=== PATIENT | female | born 1955 | race Caucasian/White ===

== ENCOUNTER 2020-02-29 13:02 | Outpatient (REF) | payer OTHER, SELFPAY ==
--- NOTE | 2020-02-29 13:41 | XR_ITS ---
EXAMINATION: XR KNEE, LEFT CLINICAL INFORMATION: Left knee pain. COMPARISON: None TECHNIQUE: Three views of the left knee. FINDINGS: There is loss of medial and patellofemoral compartment joint space with periarticular spurring. There is small anterior superior patellar enthesophyte. No abnormal joint effusion seen. XR/XR knee LT 3V IMPRESSION: Mild degenerative changes medial and patellofemoral compartment. No visible acute fracture or dislocation. There is mild suprapatellar spurring and anterior superior enthesophytes.
[2020-02-29 14:36] LABS: MANUAL DIFF FLAG NO
[2020-02-29 14:41] LABS: Basophils Percent Auto 0.5 % (0-2); Eosinophils Absolute Auto 0.3 X10*3/uL (0.0-0.4); Eosinophils Percent Auto 3.9 % (0-4); Hematocrit 43.7 % (37-47); Hemoglobin 14.6 g/dl (12.0-16.0); Imm Gran Abs Auto 0.03 X10*3/uL (0.00-0.03); Imm Gran Pct Auto 0.4 % (0.0-0.4); Lymphocytes Absolute Auto 2.1 X10*3/uL (1.2-4.9); Lymphocytes Percent Auto 25.4 % (20-40); Mean Corpuscular HGB Conc 33.4 g/dl (31.0-35.0); Mean Corpuscular Hemoglobin 29.7 pg (27.0-33.0); Mean Corpuscular Volume 88.8 fL (80-98); Mean Platelet Volume 10.2 fL (9.4-12.3); Monocytes Percent Auto 11.6 % (2-11); Neutrophils Absolute Auto 4.8 X10*3/uL (2.0-8.3); Neutrophils Percent Auto 58.2 % (45-73); Platelet Count 294 X10*3/uL (160-400); Red Blood Count 4.92 X10*6/uL (4.20-5.50); Red Cell Distribution Width 13.1 % (11.0-16.0); White Blood Count 8.2 X10*3/uL (4.8-10.8)
[2020-02-29 14:53] LABS: Estimated Average Glucose 203 mg/dL; Hemoglobin A1c % 8.7 %
[2020-02-29 15:12] LABS: Alanine Aminotransferase 18 U/L (0-31); Albumin Level 4.4 g/dL (3.5-5.0); Alkaline Phosphatase 80 U/L (39-117); Anion Gap 14 (12-20); Aspartate Amino Transferase 18 U/L (5-31); Bilirubin Total 1.2 mg/dL (0.0-1.0); Blood Urea Nitrogen 9 mg/dL (9-16); Calcium 9.1 mg/dL (8.4-10.2); Carbon Dioxide 28 mmol/L (22-29); Chloride 102 mmol/L (96-108); Estimated Glomerular Filt Rate > 60; Glucose Random 170 mg/dL (60-115); Potassium 3.6 mmol/l (3.3-5.1); Sodium 140 mmol/L (135-145); Total Protein 7.3 g/dL (6.5-8.0)
[2020-02-29 15:23] LABS: Creatinine Urine 106.45 mg/dL; Microalbum/Creatinine Ratio Ur 126.8 ug/mg cr
== END 2020-02-29 13:03 | disposition home or self-care (01) ==
LOC: HO.10HDL 13:02
PROVIDERS: Visit Provider Internal Medicine
DX: E11.9 Type 2 diabetes mellitus without complications (principal); M79.605 Pain in left leg
CPT/HCPCS: 36415; 73562; 80053; 82043; 83036; 85025

== ENCOUNTER 2020-03-27 10:42 | Outpatient (REF) | payer OTHER, SELFPAY ==
--- NOTE | 2020-03-27 10:45 | XR_ITS ---
EXAMINATION: XR KNEE AP STANDING CLINICAL INFORMATION: Left knee pain COMPARISON: Previous left knee x-ray 02/29/2020 TECHNIQUE: AP bilateral standing view of the knees was obtained. FINDINGS: Bone alignment is normal. No fracture or dislocation is seen. Joint spaces are normal. The left knee joint may be slightly higher than the right. XR/XR knee standing BI IMPRESSION: Question leg length discrepancy.
== END 2020-03-27 10:43 | disposition home or self-care (01) ==
LOC: HO.HOSX 10:42
PROVIDERS: Visit Provider Orthopaedic Surgery
DX: M17.12 Unilateral primary osteoarthritis, left knee (principal)
CPT/HCPCS: 73565; 99202

== ENCOUNTER 2020-11-10 14:06 | Outpatient (REF) | payer MEDICAID, SELFPAY ==
[2020-11-10 14:56] LABS: MANUAL DIFF FLAG NO
[2020-11-10 15:02] LABS: Basophils Percent Auto 0.4 % (0-2); Eosinophils Absolute Auto 0.4 X10*3/uL (0.0-0.4); Eosinophils Percent Auto 5.3 % (0-4); Hematocrit 37.4 % (37-47); Hemoglobin 11.9 g/dl (12.0-16.0); Imm Gran Abs Auto 0.03 X10*3/uL (0.00-0.03); Imm Gran Pct Auto 0.4 % (0.0-0.4); Lymphocytes Percent Auto 25.1 % (20-40); Mean Corpuscular HGB Conc 31.8 g/dl (31.0-35.0); Mean Corpuscular Hemoglobin 28.9 pg (27.0-33.0); Mean Corpuscular Volume 90.8 fL (80-98); Mean Platelet Volume 9.9 fL (9.4-12.3); Monocytes Percent Auto 12.3 % (2-11); Neutrophils Absolute Auto 4.5 X10*3/uL (2.0-8.3); Neutrophils Percent Auto 56.5 % (45-73); Platelet Count 303 X10*3/uL (160-400); Red Blood Count 4.12 X10*6/uL (4.20-5.50); Red Cell Distribution Width 14.7 % (11.0-16.0)
[2020-11-10 15:16] LABS: Estimated Average Glucose 140 mg/dL; Hemoglobin A1C 152.2251 umol/L; Hemoglobin A1c % 6.5 %
[2020-11-10 15:17] LABS: Anion Gap 13 (12-20); Blood Urea Nitrogen 9 mg/dL (9-16); Calcium 9.4 mg/dL (8.4-10.2); Carbon Dioxide 27 mmol/L (22-29); Chloride 105 mmol/L (96-108); Cholesterol 162 mg/dL; Estimated Glomerular Filt Rate > 60; Glucose Random 109 mg/dL (60-115); Potassium 3.6 mmol/L (3.3-5.1); Sodium 141 mmol/L (135-145)
[2020-11-10 17:13] LABS: Creatinine Urine 75.71 mg/dL; Microalbum/Creatinine Ratio Ur 46.2 ug/mg cr
== END 2020-11-10 14:07 | disposition home or self-care (01) ==
LOC: HO.LAB 14:06
PROVIDERS: PCP Internal Medicine; Visit Provider Internal Medicine
DX: I10 Essential (primary) hypertension (principal); E78.00 Pure hypercholesterolemia, unspecified; E11.9 Type 2 diabetes mellitus without complications
CPT/HCPCS: 36415; 80048; 82043; 82465; 83036; 85025

== ENCOUNTER 2021-02-13 10:15 | Outpatient (REF) | payer MEDICAID, SELFPAY ==
[2021-02-13 12:02] LABS: MANUAL DIFF FLAG NO
[2021-02-13 12:09] LABS: Basophils Percent Auto 0.4 % (0-2); Eosinophils Absolute Auto 0.5 X10*3/uL (0.0-0.4); Eosinophils Percent Auto 6.5 % (0-4); Hematocrit 38.4 % (37-47); Hemoglobin 12.3 g/dl (12.0-16.0); Imm Gran Abs Auto 0.01 X10*3/uL (0.00-0.03); Imm Gran Pct Auto 0.1 % (0.0-0.4); Lymphocytes Absolute Auto 1.9 X10*3/uL (1.2-4.9); Mean Corpuscular Volume 87.5 fL (80-98); Mean Platelet Volume 9.9 fL (9.4-12.3); Monocytes Absolute Auto 0.7 X10*3/uL (0.1-1.2); Monocytes Percent Auto 10.1 % (2-11); Neutrophils Absolute Auto 3.8 X10*3/uL (2.0-8.3); Neutrophils Percent Auto 54.9 % (45-73); Platelet Count 277 X10*3/uL (160-400); Red Blood Count 4.39 X10*6/uL (4.20-5.50); White Blood Count 6.9 X10*3/uL (4.8-10.8)
[2021-02-13 12:13] LABS: Estimated Average Glucose 146 mg/dL; Hemoglobin A1c % 6.7 %
[2021-02-13 14:28] LABS: Alanine Aminotransferase 32 U/L (0-31); Albumin Level 4.1 g/dL (3.5-5.0); Alkaline Phosphatase 90 U/L (39-117); Anion Gap 12 (12-20); Aspartate Amino Transferase 28 U/L (5-31); Bilirubin Total 1.2 mg/dL (0.0-1.0); Blood Urea Nitrogen 15 mg/dL (9-16); Calcium 9.1 mg/dL (8.4-10.2); Carbon Dioxide 27 mmol/L (22-29); Chloride 107 mmol/L (96-108); Cholesterol 166 mg/dL; Estimated Glomerular Filt Rate > 60; Glucose Random 125 mg/dL (60-115); HDL Cholesterol 44 mg/dL; LDL Cholesterol Calculated 105 mg/dl; Sodium 142 mmol/L (135-145); Total Protein 7.1 g/dL (6.5-8.0); Triglycerides 88 mg/dL
[2021-02-13 14:41] LABS: Microalbum/Creatinine Ratio Ur 13.5 ug/mg cr
== END 2021-02-13 10:16 | disposition home or self-care (01) ==
LOC: HO.HMGCLDS 10:15
PROVIDERS: PCP Internal Medicine; Visit Provider Internal Medicine
DX: E11.9 Type 2 diabetes mellitus without complications (principal); I10 Essential (primary) hypertension; E78.00 Pure hypercholesterolemia, unspecified; Z86.73 Personal history of transient ischemic attack (TIA), and cerebral infarction without residual deficits
CPT/HCPCS: 36415; 80053; 80061; 82043; 83036; 85025

== ENCOUNTER 2021-02-14 12:25 | Outpatient (REF) | payer MEDICAID, SELFPAY ==
[2021-02-14 14:07] LABS: Appearance Urine CLEAR; Color Urine YELLOW; Glucose Urine UA NEG (NEG); Leukocyte Esterase Urine NEG (NEG); Nitrite Urine NEG (NEG); Specific Gravity - Urine >= 1.030 (1.005-1.025); Urine Blood NEG (NEG); Urine Ketones NEG (NEG); Urine Protein NEG (NEG-TRACE)
== END 2021-02-14 12:26 | disposition home or self-care (01) ==
LOC: HO.HMGCLNP 12:25
PROVIDERS: Visit Provider Internal Medicine
DX: E11.9 Type 2 diabetes mellitus without complications (principal)
CPT/HCPCS: 81003

== ENCOUNTER 2021-07-02 11:59 | Outpatient (REF) | payer MEDICAID, SELFPAY ==
[2021-07-02 14:26] LABS: Alanine Aminotransferase 24 U/L (0-31); Alkaline Phosphatase 87 U/L (39-117); Anion Gap 13 (12-20); Aspartate Amino Transferase 23 U/L (5-31); Bilirubin Total 1.2 mg/dL (0.0-1.0); Blood Urea Nitrogen 18 mg/dL (9-16); Calcium 9.7 mg/dL (8.4-10.2); Carbon Dioxide 29 mmol/L (22-29); Chloride 105 mmol/L (96-108); Estimated Glomerular Filt Rate > 60; Glucose Random 124 mg/dL (60-115); Potassium 3.9 mmol/L (3.3-5.1); Sodium 143 mmol/L (135-145)
[2021-07-02 14:40] LABS: Estimated Average Glucose 137 mg/dL; Hemoglobin A1c % 6.4 %
== END 2021-07-02 12:00 | disposition home or self-care (01) ==
LOC: HO.HMGCLDS 11:59
PROVIDERS: Visit Provider Internal Medicine
DX: E11.9 Type 2 diabetes mellitus without complications (principal); I10 Essential (primary) hypertension
CPT/HCPCS: 36415; 80053; 83036

== ENCOUNTER 2021-11-21 11:49 | Outpatient (REF) | payer MEDICAID, SELFPAY ==
[2021-11-21 13:41] LABS: MANUAL DIFF FLAG NO
[2021-11-21 13:44] LABS: Basophils Percent Auto 0.5 % (0-2); Eosinophils Absolute Auto 0.4 X10*3/uL (0.0-0.4); Eosinophils Percent Auto 4.6 % (0-4); Hematocrit 39.3 % (37.0-47.0); Hemoglobin 12.6 g/dl (12.0-16.0); Imm Gran Abs Auto 0.04 X10*3/uL (0.00-0.03); Imm Gran Pct Auto 0.5 % (0.0-0.4); Lymphocytes Absolute Auto 2.3 X10*3/uL (1.2-4.9); Lymphocytes Percent Auto 27.3 % (20-40); Mean Corpuscular HGB Conc 32.1 g/dl (31.0-35.0); Mean Corpuscular Hemoglobin 28.3 pg (27.0-33.0); Mean Corpuscular Volume 88.1 fL (80.0-98.0); Mean Platelet Volume 10.1 fL (9.4-12.3); Monocytes Absolute Auto 0.8 X10*3/uL (0.1-1.2); Monocytes Percent Auto 9.3 % (2-11); Neutrophils Absolute Auto 4.8 x10*3/uL (2.0-8.3); Neutrophils Percent Auto 57.8 % (45-73); Platelet Count 292 X10*3/uL (160-400); Red Blood Count 4.46 X10*6/uL (4.20-5.50); Red Cell Distribution Width 14.7 % (11.0-16.0); White Blood Count 8.3 X10*3/uL (4.8-10.8)
[2021-11-21 13:52] LABS: Estimated Average Glucose 148 mg/dL; Hemoglobin A1c % 6.8 %
[2021-11-21 14:00] LABS: Alanine Aminotransferase 22 U/L (0-31); Albumin Level 4.2 g/dL (3.5-5.0); Alkaline Phosphatase 78 U/L (39-117); Anion Gap 10 (12-20); Aspartate Amino Transferase 20 U/L (5-31); Bilirubin Total 1.1 mg/dL (0.0-1.0); Blood Urea Nitrogen 14 mg/dL (9-16); Calcium 9.2 mg/dL (8.4-10.2); Carbon Dioxide 31 mmol/L (22-29); Chloride 104 mmol/L (96-108); Cholesterol 162 mg/dL; Estimated Glomerular Filt Rate > 60; Glucose Fasting 175 mg/dL (60-99); HDL Cholesterol 40 mg/dL; LDL Cholesterol Calculated 101 mg/dl; Potassium 4.2 mmol/L (3.3-5.1); Sodium 141 mmol/L (135-145); Total Protein 7.2 g/dL (6.5-8.0); Triglycerides 106 mg/dL
[2021-11-21 14:44] LABS: Creatinine Urine 132.64 mg/dL; Microalbum/Creatinine Ratio Ur 17.3 ug/mg cr
== END 2021-11-21 11:50 | disposition home or self-care (01) ==
LOC: HO.HMGCLDS 11:49
PROVIDERS: PCP Internal Medicine; Visit Provider Internal Medicine
DX: I10 Essential (primary) hypertension (principal); E78.00 Pure hypercholesterolemia, unspecified; E11.9 Type 2 diabetes mellitus without complications; Z86.73 Personal history of transient ischemic attack (TIA), and cerebral infarction without residual deficits
CPT/HCPCS: 36415; 80053; 80061; 82043; 83036; 85025

== ENCOUNTER 2022-02-11 10:11 | Outpatient (REF) | payer MEDICARE, MEDICAID, SELFPAY ==
[2022-02-11 11:47] LABS: Anion Gap 15 (12-20); Blood Urea Nitrogen 15 mg/dL (9-16); Calcium 9.2 mg/dL (8.4-10.2); Carbon Dioxide 26 mmol/L (22-29); Chloride 105 mmol/L (96-108); Estimated Glomerular Filt Rate > 60; Glucose Random 141 mg/dL (60-115); Sodium 142 mmol/L (135-145)
[2022-02-11 12:11] LABS: Estimated Average Glucose 160 mg/dL; Hemoglobin A1c % 7.2 %
== END 2022-02-11 10:12 | disposition home or self-care (01) ==
LOC: HO.HMGCLDS 10:11
PROVIDERS: PCP Internal Medicine; Visit Provider Internal Medicine
DX: E11.9 Type 2 diabetes mellitus without complications (principal); I10 Essential (primary) hypertension
CPT/HCPCS: 36415; 80048; 83036

== ENCOUNTER 2022-05-22 10:28 | Outpatient (REF) | payer MEDICARE, MEDICAID, SELFPAY ==
[2022-05-22 12:30] LABS: Estimated Average Glucose 157 mg/dL; Hemoglobin A1c % 7.1 %
[2022-05-22 12:32] LABS: Alanine Aminotransferase 19 U/L (0-31); Alkaline Phosphatase 82 U/L (39-117); Anion Gap 11 (12-20); Aspartate Amino Transferase 16 U/L (5-31); Bilirubin Total 1.4 mg/dL (0.0-1.0); Blood Urea Nitrogen 14 mg/dL (9-16); Calcium 9.3 mg/dL (8.4-10.2); Carbon Dioxide 29 mmol/L (22-29); Chloride 106 mmol/L (96-108); Estimated Glomerular Filt Rate > 60; Glucose Random 142 mg/dL (60-115); Potassium 4.1 mmol/L (3.3-5.1); Sodium 142 mmol/L (135-145); Total Protein 6.8 g/dL (6.5-8.0)
[2022-05-22 12:33] LABS: Thyroid Stimulating Hormone 2.18 uIU/mL (0.32-4.0)
== END 2022-05-22 10:29 | disposition home or self-care (01) ==
LOC: HO.HMGCLDS 10:28
PROVIDERS: PCP Internal Medicine; Visit Provider Internal Medicine
DX: R63.5 Abnormal weight gain (principal); E78.00 Pure hypercholesterolemia, unspecified; I10 Essential (primary) hypertension; E11.9 Type 2 diabetes mellitus without complications; Z86.73 Personal history of transient ischemic attack (TIA), and cerebral infarction without residual deficits
CPT/HCPCS: 36415; 80053; 83036; 84443

== ENCOUNTER 2023-03-10 10:53 | Outpatient (REF) | payer MEDICARE, MEDICAID, SELFPAY ==
[2023-03-10 13:15] LABS: MANUAL DIFF FLAG NO
[2023-03-10 13:29] LABS: Basophils Percent Auto 0.3 % (0-2); Eosinophils Absolute Auto 0.4 X10*3/uL (0.0-0.4); Eosinophils Percent Auto 4.1 % (0-4); Hematocrit 41.9 % (37.0-47.0); Hemoglobin 13.4 g/dl (12.0-16.0); Imm Gran Abs Auto 0.06 X10*3/uL (0.00-0.03); Imm Gran Pct Auto 0.6 % (0.0-0.4); Lymphocytes Absolute Auto 2.5 X10*3/uL (1.2-4.9); Lymphocytes Percent Auto 25.7 % (20-40); Mean Corpuscular Hemoglobin 28.9 pg (27.0-33.0); Mean Corpuscular Volume 90.5 fL (80.0-98.0); Mean Platelet Volume 10.5 fL (9.4-12.3); Monocytes Percent Auto 10.6 % (2-11); Neutrophils Absolute Auto 5.7 x10*3/uL (2.0-8.3); Neutrophils Percent Auto 58.7 % (45-73); Platelet Count 266 X10*3/uL (160-400); Red Blood Count 4.63 X10*6/uL (4.20-5.50); Red Cell Distribution Width 15.1 % (11.0-16.0); White Blood Count 9.7 X10*3/uL (4.8-10.8)
[2023-03-10 13:40] LABS: Estimated Average Glucose 160 mg/dL; Hemoglobin A1c % 7.2 % (<6.0)
[2023-03-10 13:59] LABS: Appearance Urine Clear; Color Urine Yellow; Glucose Urine UA Negative (Negative); Leukocyte Esterase Urine Negative (Negative); Nitrite Urine Negative (Negative); UMIC TRIGGER UA YES; Urine Blood Small (1+) (Negative); Urine Ketones Negative (Negative); Urine Protein Negative (Neg-Trace)
[2023-03-10 14:02] LABS: Alanine Aminotransferase 21 U/L (0-31); Albumin Level 4.2 g/dL (3.5-5.0); Alkaline Phosphatase 74 U/L (39-117); Anion Gap 14 (12-20); Aspartate Amino Transferase 17 U/L (5-31); Bilirubin Total 1.2 mg/dL (0.0-1.0); Blood Urea Nitrogen 15 mg/dL (9-16); Calcium 9.5 mg/dL (8.4-10.2); Carbon Dioxide 26 mmol/L (22-29); Chloride 105 mmol/L (96-108); Cholesterol 166 mg/dL (<200); Estimated Glomerular Filt Rate > 60; Glucose Fasting 159 mg/dL (60-99); HDL Cholesterol 40 mg/dL (>40); LDL Cholesterol Calculated 105 mg/dL (<100); Potassium 4.1 mmol/L (3.3-5.1); Sodium 141 mmol/L (135-145); Total Protein 7.3 g/dL (6.5-8.0); Triglycerides 109 mg/dL (<150)
[2023-03-10 14:13] LABS: RBC Urine 0-2 /HPF (0-2); Squamous Epithelial Cell Urine 0-2 /HPF (0-2); WBC Urine 0-5 /HPF (0-5)
[2023-03-10 14:14] LABS: Bacteria Urine None Seen (None Seen); Hyaline Casts Urine 0-2 /LPF (0-2)
[2023-03-10 14:22] LABS: Creatinine Urine 134.39 mg/dL; Microalbum/Creatinine Ratio Ur 11.9 ug/mg cr (<30)
== END 2023-03-10 10:54 | disposition home or self-care (01) ==
LOC: HO.HMGCLDS 10:53
PROVIDERS: PCP Internal Medicine; Visit Provider Internal Medicine
DX: I10 Essential (primary) hypertension (principal); E78.00 Pure hypercholesterolemia, unspecified; E11.9 Type 2 diabetes mellitus without complications; Z86.73 Personal history of transient ischemic attack (TIA), and cerebral infarction without residual deficits
CPT/HCPCS: 36415; 80053; 80061; 81001; 81003; 82043; 82570; 83036; 85025

== ENCOUNTER 2024-02-13 14:46 | Outpatient (REF) | payer MEDICARE, MEDICAID, SELFPAY ==
[2024-02-13 16:40] LABS: Estimated Average Glucose 194 mg/dL; Hemoglobin A1C 227.7112 umol/L; Hemoglobin A1c % 8.4 % (<6.0); Total Hemoglobin (HGBA1C) 3355.7905 umol/L
[2024-02-13 16:45] LABS: Alanine Aminotransferase 25 U/L (0-31); Alkaline Phosphatase 72 U/L (39-117); Anion Gap 11 (12-20); Aspartate Amino Transferase 18 U/L (5-31); Bilirubin Total 1.2 mg/dL (0.0-1.0); Blood Urea Nitrogen 15 mg/dL (9-16); Calcium 9.4 mg/dL (8.4-10.2); Carbon Dioxide 29 mmol/L (22-29); Chloride 105 mmol/L (96-108); Estimated Glomerular Filt Rate > 60; Glucose Random 202 mg/dL (60-115); Sodium 141 mmol/L (135-145); Total Protein 6.9 g/dL (6.5-8.0)
== END 2024-02-13 14:47 | disposition home or self-care (01) ==
LOC: HO.HMGCLDS 14:46
PROVIDERS: PCP Internal Medicine; Visit Provider Internal Medicine
DX: I10 Essential (primary) hypertension (principal); E11.9 Type 2 diabetes mellitus without complications
CPT/HCPCS: 36415; 80053; 83036

== ENCOUNTER 2024-08-20 14:42 | Outpatient (AMB) | payer MEDICARE, MEDICAID, SELFPAY ==
--- NOTE | 2024-08-20 14:44 | MHC.PC.OV ---
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: No Accompanied by: Self / Same As Patient Allergies STEFANO Inhibitors Allergy (Verified 08/20/24 14:44) unknown Tobacco use date assessed: 08/20/24 Fall risk assessment: No Falls in past year Last assessed Fall Risk: 08/20/24 Dental Screening Dental Screen Date: 08/20/24 Did you have a dental visit in the last 12 months?: No Did you have a dental problem in the last 6 months where you did not have access to dental care?: No HPI HPI Comments History of Present Illness Details The patient is a 69 year old female with a past medical history of diabetes, htn, hld, ho CVA, right carotid disease, OA, obesity and copd presenting for follow up. Last visit pcp in May Diabetes-on glipizide 2.5mg daily. A1C 8.4%. Eye exam overdue. STEFANO allergy CV-on plavix lipitor amlodipine. Blood pressure is well controlled Declines mammogram, colonoscopy ROS CONSTITUTIONAL: Denies weight loss, fever and chills. HEENT: Denies changes in vision and hearing. RESPIRATORY: Denies SOB and cough. CV: Denies palpitations and CP GI: Denies abdominal pain, nausea, vomiting and diarrhea. : Denies dysuria and urinary frequency. MSK: Denies new myalgia and joint pain. SKIN: Denies rash and pruritus. NEUROLOGICAL: Denies headache PSYCHIATRIC: Denies recent changes in mood. PHYSICAL EXAM: GENERAL: Alert and oriented x 3. NAD EYES: EOMI. Anicteric. HENT: Moist mucous membranes. No scleral icterus. No cervical lymphadenopathy. LUNGS: Clear to auscultation bilaterally. CARDIOVASCULAR: Regular rate and rhythm. No murmur. No JVD. ABDOMEN: Soft, non-tender +bs EXTREMITIES: No edema. Non-tender. SKIN: No rashes or lesions. Warm. NEUROLOGIC: No focal neurological deficits. CN II-XII grossly intact PSYCHIATRIC: Cooperative. Appropriate mood and affect [facility] Medical History Diabetes High blood pressure Left shoulder tendonitis Surgical History Previous back surgery History of tubal ligation Family History Father No problems noted. Mother No problems noted. 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 1. Little interest or pleasure in doing things: not at all 2. Feeling down, depressed, or hopeless: not at all 3. Trouble falling or staying asleep, or sleeping too much: not at all 4. Feeling tired or having little energy: not at all 5. Poor appetite or overeating: not at all 6. Feeling bad about yourself - or that you are a failure or have let yourself or your family down: not at all 7. Trouble concentrating on things, such as reading the newspaper or watching television: not at all 8. Moving or speaking so slowly that other people could have noticed. Or the opposite - being so fidgety or restless that you have been moving around a lot more than usual: not at all 9. Thoughts that you would be better off or of hurting yourself in some way: not at all Total score: 0 Depression Screening Interpretation: Negative Depression Screening Done: Yes 51913 - PHQ-9 Billing: Yes Source: Developed by Drs. Alex Escobedo, Marva Clayton, Alex Mcmahan and colleagues, with an educational jenni from [employer]. Thrive Questionnaire Date Thrive assessed: 08/20/24 I am a: Patient Within the past 12 months, did the food you bought not last and you didn't have the money to get more?: Never true Within the past 12 months, did you worry whether your food would run out before you got money to buy more?: Never true Do you have trouble paying for medicines?: No Do you have trouble getting transportation to medical appointments?: No Do you have trouble paying your heating and electricity bill?: No Do you have trouble taking care of your child, family member or friend?: No Do you have trouble with day-to-day activities such as bathing, preparing meals, shopping, managing finances, etc.?: No Are you currently unemployed and looking for a job?: No Are you interested in more education?: No THRIVE Score: 0 AUDIT C Alcohol Use Questionnaire (AUDIT-C) 1. How often do you have a drink containing alcohol?: Never 3. How often do you have six or more drinks on one occasion?: Never Total Score: 0 KATHERYN-7 AMB Questionnaire KATHERYN-7 Date KATHERYN - 7 assessed: 08/20/24 Feeling nervous, anxious, or on edge: 0 = Not at all Not being able to stop or control worryin = Not at all Worrying too much about different things: 0 = Not at all Trouble relaxin = Not at all Being so restless that it is hard to sit still: 0 = Not at all Becoming easily annoyed or irritable: 0 = Not at all Feeling afraid as if something awful might happen: 0 = Not at all Total KATHERYN-7 score (0-4 normal; 5-9 mild; 10-14 moderate; 15-21 severe): 0 Source: Developed by Drs. Alex Escobedo, Marva Clayton, Alex Mcmahan and colleagues, with an educational jenni from [employer]. Physical exam (Primary Care) Vital Signs: Last Vital Signs Temp 97.7 F 08/20/24 14:56 Pulse 105 H 08/20/24 14:56 BP 136/80 08/20/24 14:56 Pulse Ox 96 08/20/24 14:56 Oxygen Delivery Method Room Air 08/20/24 14:56 BMI result Body Mass Index 49.5 Tobacco/Smoking Status: Tobacco use Status Tobacco use date assessed 08/20/24 08/20/24 14:46 Patient Tobacco Use Status Never used Tobacco 08/20/24 14:46 e-Cigarette/Vaping Use Never Used 08/20/24 14:46 PHQ-9: PHQ-9 Score PHQ-9: Total score 0 08/20/24 15:05 Depression Screening Interpretation: Negative Thrive Assessment: Date of Thrive Assessment Date Thrive assessed 08/20/24 08/20/24 14:46 Coding Level of Care Code New Pt Level 4 (64711) Complex EM visit Add On G2211 Diagnoses Primary hypertension I10 Hypertension type: primary hypertension Type 2 diabetes mellitus with hyperglycemia, without long-term current use of insulin E11.65 Diabetes mellitus type: type 2 Diabetes mellitus mcfp insulin use: without termite control representative use Diabetes mellitus complication status: with hyperglycemia Additional Codes PHQ-9 - 02074 - PHQ-9 Billing: Yes ([id number]) Assessment & Plan Assessment & Plan (1) High blood pressure: Code(s): I10 - Essential (primary) hypertension Category: Medical Qualifiers: Hypertension type: primary hypertension Qualified Code(s): I10 - Essential (primary) hypertension (2) Diabetes: Code(s): E11.9 - Type 2 diabetes mellitus without complications Category: Medical Qualifiers: Diabetes mellitus type: type 2 Diabetes mellitus termite control representative insulin use: without termite control representative use Diabetes mellitus complication status: with hyperglycemia Qualified Code(s): E11.65 - Type 2 diabetes mellitus with hyperglycemia Plan 69 year old to establishcare past medical,surgical social family history reviewed meds reconciled DM-due for A1C. Weight loss efforts Orders: Orders Lipid Panel Today E11.9 - Type 2 diabetes mellitus without complications, I10 - Essential (primary) hypertension Hemoglobin A1c Today E11.9 - Type 2 diabetes mellitus without complications, I10 - Essential (primary) hypertension Comprehensive Met. Panel Today E11.9 - Type 2 diabetes mellitus without complications, I10 - Essential (primary) hypertension
--- OUTSIDE RECORDS SUMMARY | 2024-08-20 14:55 | XMS_ITS | Clinical Summary ---
Author Organization [facility] ity Address [address] [place] [address] Care Team Providers Care Edi Developer Name Role Phone Unavailable Primary Care Provider Unavailabl e Social History Tobacco Use Types Packs/Day Years Used Date Smoking Tobacco: Never Assessed Comments Unknown Sex and Gender Information Value Date Recorded Sex Assigned at Not on file Legal Sex Female 3:22 PM EST Gender Identity Not on file Sexual Orientation Not on file Plan of Treatment Health Maintenance Due Date Last Done Comments Breast Cancer Screening 1955 DTaP,Tdap,and Td Vaccines (1 - Tdap) 01/07/1976 Pneumococcal Vaccine: 50+ Ye ars (1 of 1 - PCV) 2007 Zoster Vaccines (1 of 2) 2007 Colorectal Cancer Screening: Colonoscopy 04/03/2022 Depression Screening 04/03/2022 Falls Risk Assessment 04/03/2022 Hepatitis C Screening 04/03/2022 Osteoporosis Screening (Bone Density Screening) 04/03/2022 Social Influencers of Health Screening 04/03/2022 COVID-19 Vaccine ( - 2023-2 5 season) 2024 Influenza Vaccine (Season Ended) 2025 RSV Immunization Adult Patie nts (1 - 1-dose 75+ series) 01/07/2032 HIB Vaccines Aged Out No longer eligi ble based on patient's age to complete this topic HPV Vaccines Aged Out No longer eligi ble based on patient's age to complete this topic Hepatitis A Vaccines Aged Out No long er eligible based on patient's age to complete this topic Hepatitis B Vaccines Aged Out No long er eligible based on patient's age to complete this topic IPV Vaccines Aged Out No longer eligi ble based on patient's age to complete this topic MMR Vaccines Aged Out No longer eligi ble based on patient's age to complete this topic Meningococcal ACWY Vaccine Aged Out N o longer eligible based on patient's age to complete this topic Meningococcal B Vaccine Aged Out No l onger eligible based on patient's age to complete this topic RSV Immunization Patients Un mandi 20 months Aged Out No longer eligible b ased on patient's age to complete this topic Varicella Vaccines Aged Out No longer eligible based on patient's age to complete this topic Advance Directives Documents on File Type Date Recorded Patient Personal Trainer Expl anation Health Care Decision (hx) 09/20/2020 AD FANG DIRECTIVE Health Care Decision (hx) 09/20/2020 AD FANG DIRECTIVE Health Care Decision (hx) 09/20/2020 AD FANG DIRECTIVE Health Care Decision (hx) 09/20/2020 AD FANG DIRECTIVE Health Care Decision (hx) 09/20/2020 AD FANG DIRECTIVE Health Care Decision (hx) 09/20/2020 AD FANG DIRECTIVE Health Care Decision (hx) 09/20/2020 AD FANG DIRECTIVE Health Care Decision (hx) 06/25/2013 AD FANG DIRECTIVE Health Care Decision (hx) 06/25/2013 AD FANG DIRECTIVE Health Care Decision (hx) 06/25/2013 AD FANG DIRECTIVE Health Care Decision (hx) 06/25/2013 AD FANG DIRECTIVE Health Care Decision (hx) 06/25/2013 AD FANG DIRECTIVE Health Care Decision (hx) 06/25/2013 AD FANG DIRECTIVE Health Care Decision (hx) 06/25/2013 AD FANG DIRECTIVE Health Care Decision (hx) 06/25/2013 AD FANG DIRECTIVE Health Care Decision (hx) 06/07/2013 AD FANG DIRECTIVE Health Care Decision (hx) 06/07/2013 AD FANG DIRECTIVE Health Care Decision (hx) 06/07/2013 AD FANG DIRECTIVE Health Care Decision (hx) 06/07/2013 AD FANG DIRECTIVE Health Care Decision (hx) 06/07/2013 AD FANG DIRECTIVE Health Care Decision (hx) 06/07/2013 AD FANG DIRECTIVE Health Care Decision (hx) 06/07/2013 AD FANG DIRECTIVE Health Care Decision (hx) 06/07/2013 AD FANG DIRECTIVE
[2024-08-20 14:56] VITALS: BP 136/80; PULSE 105; TEMP 36.5; O2SAT 96; BMI 49.5
== END 2024-08-20 15:16 | disposition home or self-care (01) ==
LOC: HO.HMCHD 14:42
PROVIDERS: PCP Internal Medicine; Visit Provider Internal Medicine
DX: I10 Essential (primary) hypertension (principal); E11.65 Type 2 diabetes mellitus with hyperglycemia

== ENCOUNTER → 2024-08-20 14:42 | Outpatient (BNVA) | payer MEDICARE, MEDICAID, SELFPAY | PROVIDERS: PCP Internal Medicine; Visit Provider Internal Medicine | DX: E11.65 Type 2 diabetes mellitus with hyperglycemia (principal); E78.5 Hyperlipidemia, unspecified; I10 Essential (primary) hypertension; Z86.73 Personal history of transient ischemic attack (TIA), and cerebral infarction without residual deficits | CPT/HCPCS: 96127; 99202 ==

== ENCOUNTER 2024-08-24 10:49 | Outpatient (REF) | payer MEDICARE, MEDICAID, SELFPAY ==
--- OUTSIDE RECORDS SUMMARY | 2024-08-24 12:50 | XMS_ITS | Clinical Summary ---
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
[2024-08-24 13:42] LABS: Estimated Average Glucose 209 mg/dL; Hemoglobin A1C 261.1974 umol/L; Hemoglobin A1c % 8.9 % (<6.0)
[2024-08-24 13:59] LABS: Alanine Aminotransferase 29 U/L (0-31); Albumin Level 4.1 g/dL (3.5-5.0); Alkaline Phosphatase 84 U/L (39-117); Anion Gap 13 (12-20); Aspartate Amino Transferase 28 U/L (5-31); Bilirubin Total 0.9 mg/dL (0.0-1.0); Blood Urea Nitrogen 13 mg/dL (9-16); Calcium 8.9 mg/dL (8.4-10.2); Carbon Dioxide 27 mmol/L (22-29); Chloride 106 mmol/L (96-108); Cholesterol 157 mg/dL (<200); Estimated Glomerular Filt Rate > 60; Glucose Random 189 mg/dL (60-115); HDL Cholesterol 38 mg/dL (>40); LDL Cholesterol Calculated 97 mg/dL (<100); Potassium 4.4 mmol/L (3.3-5.1); Sodium 142 mmol/L (135-145); Total Protein 6.9 g/dL (6.5-8.0); Triglycerides 114 mg/dL (<150)
== END 2024-08-24 10:50 | disposition home or self-care (01) ==
LOC: HO.HMGCLDS 10:49
PROVIDERS: PCP Internal Medicine; Visit Provider Internal Medicine
DX: I10 Essential (primary) hypertension (principal); E11.9 Type 2 diabetes mellitus without complications
CPT/HCPCS: 36415; 80053; 80061; 83036

== ENCOUNTER 2024-11-26 14:34 | Outpatient (AMB) | payer MEDICARE, MEDICAID, SELFPAY ==
--- NOTE | 2024-11-26 14:35 | A.OFFPC_ITS ---
Vital Signs 11/26/24 14:37 11/26/24 14:41 Height 4 ft 11 in Weight 245 lb BP 116/82 Blood Pressure Location Lt brachial Position Sitting Respiration 17 Pulse 94 Pulse Source Pulse Oximeter Temp 97.4 F Temp Source Temporal Artery Scan Pulse Oximetry (%) 95 Oxygen Delivery Method Room Air Intake Visit Reasons: 3 Month F/U - see comments Curator Herbarium Required: No Accompanied by: niece Allergies STEFANO Inhibitors Allergy (Verified 11/26/24 14:35) unknown Tobacco use date assessed: 08/20/24 Dental Screening Dental Screen Date: 08/20/24 HPI HPI Comments History of Present Illness Details The patient is a 69 year old female with a past medical history of diabetes, htn, hld, ho CVA, right carotid disease, OA, obesity and copd presenting for follow up. Accompanied by her sister Diabetes-On glipizide 2.5mg bid. A1C increased from 8.2 to 8.9%. Eye exam overdue. STEFANO allergy, ok on ARB. She will not check blood glucose. GI side effects with metformin in the past CV-on plavix lipitor amlodipine. Blood pressure is well controlled. Denies chest pain, exerional dyspnea. Declines mammogram, colonoscopy ROS CONSTITUTIONAL: Denies weight loss, fever and chills. HEENT: Denies changes in vision and hearing. RESPIRATORY: Denies SOB and cough. CV: Denies palpitations and CP GI: Denies abdominal pain, nausea, vomiting and diarrhea. : Denies dysuria and urinary frequency. MSK: Denies new myalgia and joint pain. SKIN: Denies rash and pruritus. NEUROLOGICAL: Denies headache PSYCHIATRIC: Denies recent changes in mood. PHYSICAL EXAM: GENERAL: Alert and oriented x 3. NAD EYES: EOMI. Anicteric. HENT: Moist mucous membranes. No scleral icterus. No cervical lymphadenopathy. LUNGS: Clear to auscultation bilaterally. CARDIOVASCULAR: Regular rate and rhythm. No murmur. No JVD. ABDOMEN: Soft, non-tender +bs EXTREMITIES: No edema. Non-tender. SKIN: No rashes or lesions. Warm. NEUROLOGIC: No focal neurological deficits. CN II-XII grossly intact PSYCHIATRIC: Cooperative. Appropriate mood and affect [facility] Medical History Diabetes High blood pressure Left shoulder tendonitis Surgical History Previous back surgery History of tubal ligation Family History Father No problems noted. Mother No problems noted. 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 How often do you have a drink containing alcohol?: Never Total Score: 0 KATHERYN-7 AMB Questionnaire KATHERYN-7 Date KATHERYN - 7 assessed: 08/20/24 Source: Developed by Drs. Alex Escobedo, Marva Clayton, Alex Mcmahan and colleagues, with an educational jenni from [employer]. Physical exam (Primary Care) Vital Signs: Last Vital Signs Temp 97.4 F 11/26/24 14:41 Pulse 94 11/26/24 14:41 Resp 17 11/26/24 14:41 BP 116/82 11/26/24 14:41 Pulse Ox 95 11/26/24 14:41 Oxygen Delivery Method Room Air 11/26/24 14:41 Tobacco/Smoking Status: Tobacco use Status Tobacco use date assessed 08/20/24 11/26/24 14:35 Patient Tobacco Use Status Never used Tobacco 11/26/24 14:35 e-Cigarette/Vaping Use Never Used 11/26/24 14:35 Thrive Assessment: Date of Thrive Assessment Date Thrive assessed 08/20/24 11/26/24 14:35 Coding Level of Care Code Est Pt Level 4 (34207) Complex EM visit Add On G2211 Diagnoses Primary hypertension I10 Hypertension type: primary hypertension Type 2 diabetes mellitus with hyperglycemia, without long-term current use of insulin E11.65 Diabetes mellitus complication status: with hyperglycemia Diabetes mellitus rn long term care insulin use: without retirement use Diabetes mellitus type: type 2 Assessment & Plan Assessment & Plan (1) High blood pressure: Code(s): I10 - Essential (primary) hypertension Category: Medical Qualifiers: Hypertension type: primary hypertension Qualified Code(s): I10 - Essential (primary) hypertension (2) Diabetes: Code(s): E11.9 - Type 2 diabetes mellitus without complications Category: Medical Qualifiers: Diabetes mellitus complication status: with hyperglycemia Diabetes mellitus retirement insulin use: without retirement use Diabetes mellitus type: type 2 Qualified Code(s): E11.65 - Type 2 diabetes mellitus with hyperglycemia Plan DM-Increase glipizide to 5mg twice daily. She will likely need further increase or additional medication but do want to avoid any hypoglycemia when she is not checking glucose Blood pressure is adequately controlled on current medications Orders: Orders Hemoglobin A1c 2 Months - Type 2 diabetes mellitus with hyperglycemia Comprehensive Met. Panel 2 Months - Type 2 diabetes mellitus with hyperglycemia Microalbumin, Random (w Creat) 2 Months 65 - Type 2 diabetes mellitus with hyperglycemia Medications: New glipizide ER 5 mg PO BID 180 tabs 3RF
--- OUTSIDE RECORDS SUMMARY | 2024-11-26 14:36 | XMS_ITS | Clinical Summary ---
Author Organization [facility] ity Address [address] [place] [address] Care Team Providers Care Production Maintenance Mechanic Name Role Phone Unavailable Primary Care Provider [...] 2007 Zoster Vaccines (1 of 2) 2007 COVID-19 Vaccine (1 - 2023-2 5 season) 2024 Depression Screening 05/05/2024 Influenza Vaccine (#1) 2025 RSV Immunization Adult Patie nts (1 [...] Documents on File Type Date Recorded Patient Dyer Assistant Expl anation Health Care Decision (hx) 09/20/2020 [...]
[2024-11-26 14:41] VITALS: BP 116/82; PULSE 94; RESP 17; TEMP 36.3; O2SAT 95
== END 2024-11-26 15:04 | disposition home or self-care (01) ==
LOC: HO.HMCHD 14:34
PROVIDERS: PCP Internal Medicine; Visit Provider Internal Medicine
DX: I10 Essential (primary) hypertension (principal); E11.65 Type 2 diabetes mellitus with hyperglycemia

== ENCOUNTER → 2024-11-26 14:34 | Outpatient (BNVA) | payer MEDICARE, MEDICAID, SELFPAY | PROVIDERS: PCP Internal Medicine; Visit Provider Internal Medicine | DX: I10 Essential (primary) hypertension (principal); E11.65 Type 2 diabetes mellitus with hyperglycemia; E78.5 Hyperlipidemia, unspecified; Z86.73 Personal history of transient ischemic attack (TIA), and cerebral infarction without residual deficits; Z79.02 Long term (current) use of antithrombotics/antiplatelets; Z79.84 Long term (current) use of oral hypoglycemic drugs; Z79.899 Other long term (current) drug therapy | CPT/HCPCS: 99212 ==

== ENCOUNTER 2025-02-23 13:11 | Outpatient (REF) | payer MEDICARE, MEDICAID, SELFPAY ==
[2025-02-23 16:32] LABS: Alanine Aminotransferase 26 U/L (0-31); Albumin Level 4.3 g/dL (3.5-5.0); Alkaline Phosphatase 81 U/L (39-117); Anion Gap 13 (12-20); Aspartate Amino Transferase 31 U/L (5-31); Blood Urea Nitrogen 15 mg/dL (9-16); Calcium 9.0 mg/dL (8.4-10.2); Carbon Dioxide 25 mmol/L (22-29); Chloride 108 mmol/L (96-108); Estimated Glomerular Filt Rate > 60; Potassium 3.8 mmol/L (3.3-5.1); Sodium 142 mmol/L (135-145); Total Protein 7.2 g/dL (6.5-8.0)
--- OUTSIDE RECORDS SUMMARY | 2025-02-23 18:32 | XMS_ITS | Clinical Summary ---
Author Organization [facility] ity Address [address] [place] [address] Care Team Providers Care Credit Intern Name Role Phone Unavailable Primary Care Provider [...] 2007 Zoster Vaccines (1 of 2) 2007 Depression Screening 05/05/2024 COVID-19 Vaccine (1 - 2023-2 5 season) 2025 Influenza Vaccine (#1) 2025 RSV Immunization Adult [...] Documents on File Type Date Recorded Patient Drawbridge Operator Expl anation Health Care Decision (hx) 09/20/2020 [...]
[2025-02-23 19:15] LABS: Microalbum/Creatinine Ratio Ur 7.4 ug/mg cr (<30)
== END 2025-02-23 13:12 | disposition home or self-care (01) ==
LOC: HO.HMGCLDS 13:11
PROVIDERS: PCP Internal Medicine; Visit Provider Internal Medicine
DX: E11.65 Type 2 diabetes mellitus with hyperglycemia (principal)
CPT/HCPCS: 36415; 80053; 82043; 82570; 83036

== ENCOUNTER 2025-03-01 13:26 | Outpatient (AMB) | payer MEDICARE, MEDICAID, SELFPAY ==
--- NOTE | 2025-03-01 12:58 | MHC.PC.OV ---
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 Required: No Accompanied by: niece-emily Allergies STEFANO Inhibitors Allergy (Verified 03/01/25 12:59) unknown Medication List - Last Reconciled 03/01/25 by CRISTHIAN Garcia amlodipine 5 mg PO BID atorvastatin 80 mg PO DAILY clopidogrel 75 mg PO DAILY furosemide 20 mg PO DAILY 90 days glipizide ER 5 mg PO BID glipizide ER 10 mg PO BID loratadine (Claritin) 10 mg PO DAILY losartan 50 mg PO BID 30 days Tobacco use date assessed: 08/20/24 Dental Screening Dental Screen Date: 08/20/24 HPI HPI Comments History of Present Illness Details 70-year-old female with history of type 2 diabetes, hypertension, hyperlipidemia, CVA, right carotid disease, osteoarthritis, obesity presenting to the office for follow-up accompanied by her niece. Type 2 diabetes-most recent hemoglobin A1c 8.3%, improved from 8.9%. Compliant with glipizide 5 mg twice daily ER. Has had adverse effects with metformin in the past. Not always compliant with diabetic diet though her niece does cook her meals. Often eats sweets. She does not check her glucose levels Hypertension-blood pressure in the office today 114/62. Compliant with losartan 50 mg, amlodipine 5 mg twice daily, furosemide 20 mg daily CVA/CAD-on atorvastatin 80 mg daily, clopidogrel 75 mg daily. Obesity-not always following healthy diet. Not exercising Concerns: None Health maintenance: Declines mammogram Declines colonoscopy. Agreeable to Cologuard Due for DEXA scan ROS: General: No fevers, malaise, unintentional weight loss HEENT: No blurred vision, diplopia. No sore throat, nasal congestion, rhinorrhea, sinus pain, ear pain Cardiovascular: No chest pain, palpitations, or leg edema Respiratory: No shortness of breath, wheezing, cough GI: No abdominal pain, nausea, vomiting, diarrhea, constipation, melena, hematochezia : No dysuria, hematuria, increased urinary frequency, decreased urinary output MSK: No myalgia, back pain Neuro: No headaches, weakness, paresthesias Skin: No rashes or lesions EXAM: Constitutional - Awake and Alert, No apparent distress Eyes - PERRL Cardiovascular - S1S2, RRR, No edema Respiratory - Normal lung expansion, Normal respiratory effort, No respiratory distress, CTA bilaterally Extremities - no calf tenderness bilaterally, no swelling Skin - Warm/Dry Neurological - Alert & oriented x3 Psychological - Appropriate affect [facility] Medical History (Updated 03/01/25 @ 15:59 by CRISTHIAN Garcia) Carotid artery stenosis History of CVA (cerebrovascular accident) Obesity HLD (hyperlipidemia) Diabetes High blood pressure Left shoulder tendonitis Surgical History Previous back surgery History of tubal ligation Family History Father No problems noted. Mother No problems noted. 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 Alex Escobedo, Marva Clayton, Alex Mcmahan and colleagues, with an educational jenni from [employer]. Physical exam (Primary Care) Vital Signs: Last Vital Signs Temp 98.0 F 03/01/25 13:35 Pulse 98 03/01/25 13:35 Resp 20 03/01/25 13:35 BP 114/62 03/01/25 13:35 Pulse Ox 94 03/01/25 13:35 Oxygen Delivery Method Room Air 03/01/25 13:35 BMI result Body Mass Index 46.5 Tobacco/Smoking Status: Tobacco use Status Tobacco use date assessed 08/20/24 03/01/25 12:59 Patient Tobacco Use Status Never used Tobacco 03/01/25 12:59 e-Cigarette/Vaping Use Never Used 03/01/25 12:59 Thrive Assessment: Date of Thrive Assessment Date Thrive assessed 08/20/24 03/01/25 12:59 Coding Level of Care Code Est Pt Level 4 (05418) Complex EM visit Add On G2211 Diagnoses Primary hypertension I10 Hypertension type: primary hypertension HLD (hyperlipidemia) E78.5 Type 2 diabetes mellitus with hyperglycemia, without long-term current use of insulin E11.65 Diabetes mellitus type: type 2 Diabetes mellitus continuous churn buttermaker insulin use: without alf use Diabetes mellitus complication status: with hyperglycemia Obesity E66.9 Assessment & Plan Assessment & Plan (1) High blood pressure: Code(s): I10 - Essential (primary) hypertension Category: Medical Qualifiers: Hypertension type: primary hypertension Qualified Code(s): I10 - Essential (primary) hypertension Plan: Controlled in the office. Continue losartan 50 mg twice daily, Lasix 20 mg daily, amlodipine 5 mg twice daily. Low-sodium diet. Renal function electrolyte levels normal. (2) HLD (hyperlipidemia): Code(s): E78.5 - Hyperlipidemia, unspecified Category: Medical Plan: LDL at goal. Continue atorvastatin 80 mg daily. Counseled on diet lower in saturated fats and highly processed foods. Recommend weight loss efforts including regular exercise for at least 150 minutes weekly broken up (3) Diabetes: Code(s): E11.9 - Type 2 diabetes mellitus without complications Category: Medical Qualifiers: Diabetes mellitus type: type 2 Diabetes mellitus alf insulin use: without alf use Diabetes mellitus complication status: with hyperglycemia Qualified Code(s): E11.65 - Type 2 diabetes mellitus with hyperglycemia Plan: Uncontrolled. Increase glipizide to 10 mg twice daily ER. Adverse reaction to metformin and refuses injections. Counseled on diabetic diet. Provided prescriptions for glucometer and supplies as well as continuous glucose monitor which she would benefit from. Continue annual eye exams (4) Obesity: Code(s): E66.9 - Obesity, unspecified Category: Medical Plan: Weight loss efforts discussed. Better compliance with diabetic diet stressed. Recommend exercise for at least 150 minutes weekly. Plan Follow up in the office in 3 months. Labs to be completed today Orders: Orders Basic Metabolic Panel Today E11.65 - Type 2 diabetes mellitus with hyperglycemia, E55.9 - Vitamin D deficiency, unspecified, E66.9 - Obesity, unspecified, E78.5 - Hyperlipidemia, unspecified, I10 - Essential (primary) hypertension Lipid Panel Today E11.65 - Type 2 diabetes mellitus with hyperglycemia, E55.9 - Vitamin D deficiency, unspecified, E66.9 - Obesity, unspecified, E78.5 - Hyperlipidemia, unspecified, I10 - Essential (primary) hypertension XR DEXA axial skeleton Today M89.8X9 - Other specified disorders of bone, unspecified site, N95.1 - Menopausal and female climacteric states, Z13.820 - Encounter for screening for osteoporosis Complete Blood Count Auto Diff Today E11.65 - Type 2 diabetes mellitus with hyperglycemia, E55.9 - Vitamin D deficiency, unspecified, E66.9 - Obesity, unspecified, E78.5 - Hyperlipidemia, unspecified, I10 - Essential (primary) hypertension Hemoglobin A1c Today E11.65 - Type 2 diabetes mellitus with hyperglycemia, E55.9 - Vitamin D deficiency, unspecified, E66.9 - Obesity, unspecified, E78.5 - Hyperlipidemia, unspecified, I10 - Essential (primary) hypertension Liver Panel Today E11.65 - Type 2 diabetes mellitus with hyperglycemia, E55.9 - Vitamin D deficiency, unspecified, E66.9 - Obesity, unspecified, E78.5 - Hyperlipidemia, unspecified, I10 - Essential (primary) hypertension Vitamin D 25-OH Total Today E11.65 - Type 2 diabetes mellitus with hyperglycemia, E55.9 - Vitamin D deficiency, unspecified, E66.9 - Obesity, unspecified, E78.5 - Hyperlipidemia, unspecified, I10 - Essential (primary) hypertension Referrals Cologuard Test Z12.11 - Encounter for screening for malignant neoplasm of colon, Z12.12 - Encounter for screening for malignant neoplasm of rectum Medications: New glipizide ER 10 mg PO BID 180 tabs 1RF cholecalciferol (vitamin D3) 50 mcg PO DAILY 90 caps 1RF flash glucose scanning reader ([employer] Kamini 14 Day [place]) As directed 1 ea 0RF E11.65 - Type 2 diabetes mellitus with hyperglycemia blood-glucose meter (Freestyle [employer] meter) Check fasting glucose daily. Goal 90-130 1 ea 0RF blood sugar diagnostic (Freestyle [employer] strips) Check fasting glucose daily. Goal 90-130 100 ea 0RF lancets (FreeStyle Lancets) Check fasting glucose daily. Goal 90-130 100 ea 0RF flash glucose sensor ([employer]Style Kamini 14 Day Sensor kit) As directed 1 ea 0RF E11.65 - Type 2 diabetes mellitus with hyperglycemia Discontinued glipizide ER Discontinued Reason: Doctor's Order 5 mg PO BID 180 tabs 3RF
[2025-03-01 13:35] VITALS: BP 114/62; PULSE 98; RESP 20; TEMP 36.7; O2SAT 94; BMI 46.5
--- OUTSIDE RECORDS SUMMARY | 2025-03-01 17:22 | XMS_ITS | Clinical Summary ---
Author Organization [facility] ity Address [address] [place] [address] Care Team Providers Care Half Section Ironer Name Role Phone Unavailable Primary Care Provider [...] Documents on File Type Date Recorded Patient Grinder Needle Tip Expl anation Health Care Decision (hx) 09/20/2020 [...]
== END 2025-03-01 14:10 | disposition home or self-care (01) ==
PROVIDERS: PCP Physician Assistant; Visit Provider Physician Assistant
DX: I10 Essential (primary) hypertension (principal); E78.5 Hyperlipidemia, unspecified; E11.65 Type 2 diabetes mellitus with hyperglycemia; E66.9 Obesity, unspecified

== ENCOUNTER → 2025-03-01 13:26 | Outpatient (BNVA) | payer MEDICARE, MEDICAID, SELFPAY | PROVIDERS: PCP Internal Medicine; Visit Provider Physician Assistant | DX: I10 Essential (primary) hypertension (principal); E78.5 Hyperlipidemia, unspecified; E11.65 Type 2 diabetes mellitus with hyperglycemia; E66.9 Obesity, unspecified; Z68.42 Body mass index [BMI] 45.0-49.9, adult; Z86.73 Personal history of transient ischemic attack (TIA), and cerebral infarction without residual deficits; Z79.84 Long term (current) use of oral hypoglycemic drugs; Z79.899 Other long term (current) drug therapy | CPT/HCPCS: 99212 ==

== ENCOUNTER 2025-05-02 13:29 | Outpatient (REF) | payer MEDICARE, SELFPAY ==
--- NOTE | ~2025-05-02 | MM_ITS ---
EXAMINATION: DXA BONE DENSITY AXIAL HISTORY: M89.8X9 - Other specified disorders of bone, unspecified site TECHNIQUE: [employer] Dual energy absorptiometry (DEXA) of the lumbar spine, total left hip, and femoral neck was performed. COMPARISON: There are no prior studies for comparison. FINDINGS: The bone mineral density of the lumbar spine is 1.223 g/cm2, corresponding to a T-score of 0.4, and a Z-score of 0.9. This is indicative of normal bone mineral density. The bone mineral density of the left total hip is 0.840 g/cm2, corresponding to a T-score of -1.3, and a Z-score of -0.8. This is indicative of osteopenia. The bone mineral density of the left femoral neck is 0.617 g/cm2, corresponding to a T-score of -3.0, and a Z-score of -2.2. This is indicative of osteoporosis. MM/XR DEXA axial skeleton IMPRESSION: Based on bone mineral density, and according to World Health Organization (WHO) criteria, the diagnosis is consistent with osteoporosis. Statistically, 68% of repeat scans fall within 1 SD (+/- 0.010 g/cm2 for AP spine L1-L4) and 1 SD (+/- 0.012 g/cm2 for femur total) FRAX is a trademark of the [employer]'s [place] [employer] Met[employer], a World Health Organization (WHO) Collaborating Center. Electronically signed by: Alex Andersen MD 05/02/2025 01:56 PM [facility] [place], [place]
--- OUTSIDE RECORDS SUMMARY | 2025-05-02 15:34 | XMS_ITS | Clinical Summary ---
Author Organization [facility] ity Address [address] [place] [address] Care Team Providers Care Card Cutter Helper Name Role Phone Unavailable Primary Care Provider [...] Depression Screening 05/05/2024 COVID-19 Vaccine (1 - 2024-2 6 season) 2025 Influenza Vaccine (#1) 2025 RSV [...] Documents on File Type Date Recorded Patient Resource Room Special Education Teacher Expl anation Health Care Decision (hx) 09/20/2020 [...]
== END 2025-05-02 13:30 | disposition home or self-care (01) ==
LOC: HO.MAMMO 13:29
PROVIDERS: PCP Physician Assistant; Visit Provider Physician Assistant
DX: M85.852 Other specified disorders of bone density and structure, left thigh (principal); N95.1 Menopausal and female climacteric states; M89.8X0 Other specified disorders of bone, multiple sites; Z13.820 Encounter for screening for osteoporosis
CPT/HCPCS: 77080

== ENCOUNTER → 2025-05-02 13:30 | Outpatient (BNV) | payer MEDICARE, SELFPAY | PROVIDERS: PCP Physician Assistant; Visit Provider Radiology Diagnostic Radiology | DX: E28.39 Other primary ovarian failure (principal) | CPT/HCPCS: 77080 ==